=== PATIENT | male | born 1985 | race Caucasian/White ===

== ENCOUNTER 2020-07-21 13:17 | Emergency (ER) | payer BC, SELFPAY ==
--- NOTE | 2020-07-22 13:32 | ER ---
Nurse's Notes [facility] Name: Gaurav Barakat II Age: 34 yrs Sex: Male : 1985 Arrival Date: 07/21/2020 Time: 13:19 Bed Waiting Private MD: Lj Benson Diagnosis: ED Course: 07/21 13:19 Patient arrived in ED. mr 13:19 Lj Benson MD is Private Physician. mr 13:20 Dressings: checked wound at registration window while registering. 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 C-shaped laceration noted to palm of hand <5 cm, bleeding controlled. Covered with 4x4's. Tolerated well. Administered Medications: No medications were administered Outcome: 13:30 Patient left the ED. 1 Signatures: Vicki Kelly Lynsay, RN RN ll1
== END 2020-07-21 13:30 | disposition left against medical advice (07) ==
LOC: ER 13:17
DX: Z02.9 Encounter for administrative examinations, unspecified (principal)